=== PATIENT | male | born 1955 | race Caucasian/White ===

== ENCOUNTER 2018-12-19 18:46 | Observation (INO) | payer BC ==
[~2018-12-19] VITALS: Ht 177.8 cm; Wt 163.4 kg
[2018-12-19] MEDS ORDERED: LISINOPRIL10 MG PO (19:00)
--- NOTE | 2018-12-19 22:00 | NUR ---
PATIENT ARRIVED TO THE FLOOR VIA STRETCHER. PATIENT TRANSFERED WITHOUT DIFFICULTY. PATIENT IS AAOX4. DOES NOT REMEMBER THE EVENTS DIRECTLY AFTER HIS INJURY BUT IS ORIENTED TO ALL ELSE. CMS INTACT. PUPILS ROUND AND REACTIVE TO LIGHT. PATIENT IS FREQUENTLY DROWSEY AND RESTING IN BED. IV SITE IS INFILTRATED, NEW IV SITE PLACE. PATIENT TOLERATES POORLY. REPORTS PAIN IN HIS HEAD, WHICH HAS OBVIOUS INJURIES FROM HIS FALL. NO ACTIVE BLEEDING. PATIENT ON CONTINUOUS PULSE OX, O2 SAT 96% ON ROOM AIR. ORIENTED PATIENT TO ROOM AND PLAN OF CARE. BED ALARM SET.
--- NOTE | 2018-12-20 | NUR ---
PATIENT UP TO THE BATHROOM. UNSTEADY ON HIS FEET AND DIZZY. PATIENT SAFELY BACK TO BED. REPORTS HEADACHE. PUPILS ROUND AND REACTIVE TO LIGHT. STRENGTH AND SENSATION WNL. PATIENT REMEMBERS WORD GIVEN TO HIM BY THIS NURSE AT LAST INTERACTION. SPEECH SOMEWHAT MUMBLED BUT WHEN ASKED TO CLARIFY PATIENT SPEAKS CLEARLY. PATIENT RETURNED TO BED. CALL LIGHT IN REACH.
--- NOTE | 2018-12-20 02:00 | NUR ---
PATIENT UP TO BEDSIDE CAMMODE, TOLERATED WELL. PATIENT REPORTS ONGOING HEADACHE BUT DENIES NEED FOR PRN MEDS. NO NAUSEA. NEURO CHECK REMAINS UNCHANGED. PATIENT IS MORE ALERT AT THIS TIME. PATIENT BACK IN BED CALL LIGHT IN REACH.
--- NOTE | 2018-12-20 04:00 | NUR ---
PATIENT HAS BEEN SLEEPING VERY SOUNDLY, SNORING LOUDLY WITH SHORT PERIODS OF APNEA. CONTINUOUS PULSE OX IN PLACE, O2 SAT GREATER THAN 88% ON RA. PATIENT WAKES EASILY. NEURO CHECK IS UNCHANGED. PATIENT HAS SOME MUMBLING BUT WHEN ASKED TO CLARIFY HE DOES SPEAK MORE CLEARLY. THIS APPEARS TO BE BASELINE FOR HIM. PATIENT UP TO THE BATHROOM. MORE STEADY WITH FWW. DENIES FEELING DIZZY. HEADACHE IS MILD. DENIES PRN PAIN MEDS. PATIENT RETURNED TO BED. CALL LIGHT IN REACH.
--- NOTE | 2018-12-20 06:11 | NUR ---
PATIENT UP TO BATHROOM. SBA W/FWW. PATIENT APPEARS MORE STEADY THAN PREVIOUS. PUPILS ARE ROUND AND REACTIVE TO LIGHT. MEMORY INTACT EXCEPT FOR THE EVENTS SURROUNDING HIS INJURY. SENSORY AND MOTOR FUNCTION WNL. PATIENT DENIES FURTHER NEEDS. BACK TO BED. CALL LIGHT IN REACH.
--- NOTE | 2018-12-20 06:21 | NUR ---
PATIENT ARRIVED TO THE FLOOR AROUND 2129 LAST NIGHT. Q2H NEURO CHECKS. PATIENT HAS BEEN ORIENTED, HOWEVER HE HAS SOME MEMORY LOSS SURROUNDING HIS INJURY. PATIENT HAS BEEN FREQUENTLY DROWSY BUT WAKES EASILY. MILD HEAD PAIN THAT HAS MOST RESOLVED. MINOR INJURYS ON HEAD AND ARMS FROM THE FALL, OPEN TO AIR. PATIENT WAS UNSTEADY AT FIRST, BUT THIS MORNING WALKING WELL WITH FWW. NO DIZZINESS OR NAUSEA. CLEAR LIQUIDS. CONTINUOUS PULSE OX.
--- NOTE | 2018-12-20 06:37 | NUR ---
DR BARNETT CALLED TO GET UP DATE ON PT, AND TO SAY HE WILL ROUND ON PT NEAR NOON. DIET ORDER CHANGED TO REG.
--- NOTE | 2018-12-20 06:39 | NUR ---
SPOKE WITH , ORDERS TO ADVANCE DIET TO REGULAR.
--- NOTE | 2018-12-20 07:15 | NUR ---
PT IN BED, PERSONAL SUPPLIES AND CALL LIGHT IN REACH. PT AWAKE, ALERT, ANSWERING QUESTIONS APROPRIATELY. RECIEVED BEDSIDE REPORT FROM BERTRAM MADISON.
--- NOTE | 2018-12-20 07:43 | NUR ---
CALLED DR. BARNETT TO REQUEST ORDERS FOR MEDICATIONS FOR PT, ER ORDERS WERE NO LONGER ACTIVE. RECIEVED TORB FOR SALINE LOCK IV, ZOFRAN 4 MG IV Q 6 HOURS PRN NAUSEA, AND ACETAMINOPHEN 650 MG PO Q 8 HOURS PRN PAIN.
--- NOTE | 2018-12-20 08:34 | NUR ---
PT SITTING UP IN RECLINER, ATE 100% OF BREAKFAST, TOLERATED WELL. REPORTS THAT HE FEELS "A LITTLE BIT LIGHT HEADED", REPORTS THAT HE FELT THE SAME LAYING IN BED AND SITTING UP IN RECLINER. ALERT, ORIENTED X 4. STILL DOES NOT RECALL ANYTHING FROM THE TIME HE FELL UNTIL HE WAS IN THE EMERGENCY DEPARTMENT. REPORTED HAVING 1/10 PAIN TO THE BACK OF HIS HEAD, WHERE HE HIT HEAD WHEN HE FELL.
--- NOTE | 2018-12-20 08:41 | NUR ---
PATIENT UP TO BATHROOM AND THEN TO CHAIR, SBA FWW. LINEN CHANGE REFUSED. SIAD HE WOULD THINK ABOUT A SHOWER. FRESH WATER GIVEN. CALL LIGHT IN REACH. NO FURTHER NEEDS AT THIS TIME.
--- NOTE | 2018-12-20 09:28 | NUR ---
PATIENT IN CHAIR WATCHING TV. FRESH WATER GIVEN. CALL LIGHT IN REACH. NO FURTHER NEEDS AT THIS TIME.
--- NOTE | 2018-12-20 10:21 | NUR ---
PT SITTING UP IN RECLINER. REPORTS "A TINY BIT" OF PAIN TO BACK OF HEAD, REPORTED TYLENOL PRN IMPROVED THIS. REPORTED "SOME" LIGHT HEADEDNESS, BUT REPORTED THAT THIS IS IMPROVED WELL. CMS INTACT. STRENGTH WNL, PUPILS WNL, ALERT, ORIENTED X 3, STILL DOES NOT RECALL EVENT OF FALL, AMBULANCE TRIP TO HOSPITAL.
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
--- NOTE | 2018-12-20 12:40 | NUR ---
PT ALERT, ORIENTED TO ALL EXCEPT EVENTS SURROUNDING FALL. STILL DOES NOT RECALL ANYTHING FROM JUST PRIOR TO HITTING HIS HEAD WHEN HE FELL, TO BEING IN THE EMERGENCY ROOM. DOES NOT RECAL EVENTS OF FALL, AMBULANCE RIDE TO HOSPITAL.
--- NOTE | 2018-12-20 14:22 | NUR ---
PATIENT IN BED WATCHING TV. FRESH WATER GIVEN. CALL LIGHT IN REACH. NO FURTHER NEEDS AT THIS TIME.
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
== END 2018-12-20 17:34 | disposition home or self-care (01) ==
LOC: ED 18:46 → MS 18:47
PROVIDERS: ADMIT Colon & Rectal Surgery
DX: S06.0X9A Concussion with loss of consciousness of unspecified duration, initial encounter (principal); I10 Essential (primary) hypertension; G47.33 Obstructive sleep apnea (adult) (pediatric); E66.9 Obesity, unspecified; Z68.43 Body mass index [BMI] 50.0-59.9, adult; R40.2362 Coma scale, best motor response, obeys commands, at arrival to emergency department; R40.2142 Coma scale, eyes open, spontaneous, at arrival to emergency department; R40.2252 Coma scale, best verbal response, oriented, at arrival to emergency department; R40.2412 Glasgow coma scale score 13-15, at arrival to emergency department; K42.0 Umbilical hernia with obstruction, without gangrene; W00.0XXA Fall on same level due to ice and snow, initial encounter; Y92.007 Garden or yard of unspecified non-institutional (private) residence as the place of occurrence of the external cause; Z79.899 Other long term (current) drug therapy; Z88.0 Allergy status to penicillin
CPT/HCPCS: 70450; 72125; 96374; 96375; 99284-25; G0378; J2405; J2550